=== PATIENT | male | born 1955 | race Caucasian/White ===

== ENCOUNTER 2021-05-28 00:30 | Day surgery (SDC) | payer BC, SELFPAY ==
--- NOTE | 2021-05-25 16:27 | PM.HPGS ---
History of Present Illness History of Present Illness Consent: Risks, benefits, and alternatives have been discussed and questions answered. Patient agrees to proceed with procedure. Chief complaint: neoplasm screening Narrative: Oscar Motta is a 65 year old male was referred for colon cancer screening. His last exam was 10 years ago Review of Systems Review of Systems: All systems reviewed & are unremarkable except as noted in HPI and below PMFSH Past Medical History Medical History Arthritis Hypertension Social History Social History Smoking status: Former smoker Tobacco type: cigarettes Alcohol intake: current Drinks per week: 30 Alcohol use details: 4-5 beers per day Substance use: never Substance use type: does not use Living arrangements: with family Spiritual care concerns: No Meds Home Medications and Allergies Home Medications Medication Instructions Recorded Confirmed Type diltiazem HCl [Tiadylt ER] 240 mg PO DAILY 05/15/21 05/28/21 History sildenafil 100 mg PO DAILY 05/15/21 05/28/21 History Allergies Allergy/AdvReac Type Severity Reaction Status Date / Time naproxen Allergy Severe HIVES Verified 05/28/21 06:16 SHELLFISH Allergy Intermediate ITCHING Uncoded 05/28/21 06:16 Exam Const: General: alert Orientation/consciousness: patient oriented x3 Resp: Auscultation: clear to auscultation bilaterally Cardio: Rhythm: regular rhythm GI: GI Palp: Yes Soft to palpation and No Tenderness to palpation present (GI) Neuro: General: patient oriented x3 Assessment and Plan Assessment and plan (1) Colon cancer screening: Code(s): Z12.11 - Encounter for screening for malignant neoplasm of colon Status: Acute Assessment and Plan: Colonoscopy with possible biopsy or polypectomy or cautery or injection of substances.
[2021-05-28 06:19] VITALS: BP 150/89; PULSE 71; RESP 18; TEMP 35.9; O2SAT 99
[2021-05-28] MEDS: LACTATED RINGERS 1,000 ML 150 ML IV CONT (06:22)
--- NOTE | 2021-05-28 07:05 | WPDANESEPPF ---
Anes - Initial Pre Proc Eval Procedure: Operation Date: 05/28/21 07:30 Proposed Procedures p Screening Colonoscopy - Jeff Dao MD Date/Time: 05/28/21 07:05 Surgeon: Jeff Dao MD Pre Op Diagnosis: neoplasm screening Patient Data Age: 65 Gender: M Height: 1.8 m Weight: 96.3 kg Last Vital Signs Temp 96.7 F L 05/28/21 06:19 Pulse 71 05/28/21 06:19 Resp 18 05/28/21 06:19 BP 150/89 H 05/28/21 06:19 Pulse Ox 99 05/28/21 06:19 Allergies Allergy/AdvReac Type Severity Reaction Status Date / Time naproxen Allergy Severe HIVES Verified 05/28/21 06:16 SHELLFISH Allergy Intermediate ITCHING Uncoded 05/28/21 06:16 Home Medications Medication Instructions Recorded Confirmed Type diltiazem HCl [Tiadylt ER] 240 mg PO DAILY 05/15/21 05/28/21 History sildenafil 100 mg PO DAILY 05/15/21 05/28/21 History Patient hx anesthesia problems: none Family hx anesthesia problems: none Results Review: All pre-operative results and documents have been reviewed as part of the pre-operative evaluation. [facility] Past Medical History Medical History (Updated 05/28/21 @ 07:01 by Josue Yun MD) Arthritis Hypertension Social History Social History Smoking status: Former smoker Tobacco type: cigarettes Alcohol intake: current Drinks per week: 30 Alcohol use details: 4-5 beers per day Substance use: never Substance use type: does not use Living arrangements: with family Spiritual care concerns: No Anes - Eval Final PreProcedure Day of Procedure 05/28/21 07:05 Patient weight: overweight Heart: regular rate and rhythm Lungs: clear to auscultation Airway: Mallampati scale class II Neurological: alert and oriented Last oral intake: >/= 8 hours ASA classification: II Emergent: no Anesthetic plan: proceed Anesthesia type and monitoring: general GIVS and standard monitoring Results Review: All pre-operative results and documents have been reviewed as part of the pre-operative evaluation. Informed Consent: The patient's anesthetic plan and its attendant risks and benefits were discussed with the patient/family/POA. Questions were solicited and answers provided to the satisfaction of the patient/family/POA.
[2021-05-28 07:46] VITALS: BP 115/74; PULSE 71; RESP 20; O2SAT 98
[2021-05-28 07:56] VITALS: BP 104/71; PULSE 66; RESP 18; O2SAT 18
[2021-05-28 08:06] VITALS: BP 111/101; PULSE 64; RESP 22; O2SAT 22
== END 2021-05-28 08:15 | disposition home or self-care (01) ==
PROVIDERS: PCP Emergency Medicine; Visit Provider Internal Medicine Gastroenterology
PROC: 0DJD8ZZ Inspection of Lower Intestinal Tract, Via Natural or Artificial Opening Endoscopic (ICD-10-PCS; CPT 45378; principal; 2021-05-28 07:30)
DX: Z12.11 Encounter for screening for malignant neoplasm of colon (principal); M19.90 Unspecified osteoarthritis, unspecified site; I10 Essential (primary) hypertension; Z87.891 Personal history of nicotine dependence
CPT/HCPCS: 45378; J2704; J7120